=== PATIENT | male | born 1965 | race Caucasian/White ===

== ENCOUNTER 2018-10-11 19:08 | Emergency (ER) | payer BC, MEDICAID ==
[2018-10-11 19:08] VITALS: BMI 41.5
[2018-10-11 19:22] VITALS: RESP 18; TEMP 98.3
[2018-10-11] MEDS ORDERED: Tetanus/Diphtheria Toxoids 0.5 ml Syringe IM ONE ×2 (19:27→19:35)
[2018-10-11] MEDS ORDERED: Lidocaine Hydrochloride 5 ML INJ ONE (19:48)
--- NOTE | 2018-10-11 20:11 | C.PDOC ---
History Of Present Illness 52 year old male presents to the ED for evaluation after sustaining a laceration to his right middle finger with a rusted metal while at work earlier today. Patient removed the foreign body from his finger on site. Patient is unsure when he last received Tetanus immunization. He denies sensory changes or extremity numbness/weakness. Time Seen by Provider: 10/11/18 19:23 Chief Complaint (Nursing): Finger,Hand,&Wrist History Per: Patient History/Exam Limitations: no limitations Onset/Duration Of Symptoms: Hrs Current Symptoms Are (Timing): Still Present Quality: "Pain" Additional History Per: Patient Past Medical History Reviewed: Historical Data, Nursing Documentation, Vital Signs Vital Signs: Last Vital Signs Temp 98.3 F 10/11/18 19:13 Pulse 97 H 10/11/18 19:13 Resp 18 10/11/18 19:13 BP 165/107 H 10/11/18 19:13 Pulse Ox 96 10/11/18 19:13 - Medical History PMH: Asthma, Fractures (LEFT WRIST LEFT HIP RIGHT SHOULDER), HTN, Kidney Stones, Sleep Apnea (C PAP SETTING 5) Surgical History: No Surg Hx - [facility] Procedures CLOSURE SKIN & SUBCUTANEOUS NEC (08/09/13) LAPAROSCOPIC VERTICAL (SLEEVE) GASTRECTOMY (07/06/14) OTHER ENDOSCOPY OF SM INTEST (07/06/14) REMOVAL SUPERFIC FB EYE (06/21/14) Family History: States: Unknown Family Hx - Social History Hx Tobacco Use: No Hx Alcohol Use: No Hx Substance Use: No - Immunization History Hx Tetanus Toxoid Vaccination: No Hx Influenza Vaccination: No Hx Pneumococcal Vaccination: No Review Of Systems Skin: Positive for: Other (laceration to right middle finger ) Neurological: Negative for: Weakness, Numbness Physical Exam - Physical Exam Appears: Non-toxic, No Acute Distress Skin: Normal Color, Warm, Dry, Other (2cm superficial laceration to volar aspect of right 3rd DIP. No foreign body visualized. No tendon injury noted. ) Head: Atraumatic, Normacephalic Extremity: Normal ROM, Capillary Refill (less than 2 seconds ) Neurological/Psych: Normal Speech, Normal Cognition, Normal Sensation ED Course And Treatment O2 Sat by Pulse Oximetry: 96 (on RA) Pulse Ox Interpretation: Normal Progress Note: Right hand XR ordered and reviewed. XR image shows no evidence of foreign body. Tetanus immunization given. 2cm superficial laceration to volar aspect of right 3rd DIP. Digital block performed. Wound irrigated with NS and explored. No FB seen. No tendon injury. Area cleansed thoroughly with saline and small amt betadine. Two 4-0 Nylon sutures placed with bacitracin dressing. Pt tolerated well with minimal bleeding. Patient is resting comfortably and stable for discharge. Patient is advised to follow up with his PMD within 2 days for wound check and suture removal. Laceration - Laceration Repair volar aspect of right 3rd DIP Wound Length (In cm): 2 Description Of Wound: Linear Wound Cleansed With: Betadine, Sterile Saline Wound Examination: Irrigated With Saline, No FB With Wound Exploration, No Tendon Injury With Wound Exploration Wound Closure: Suture (two ) Suture Technique And Material Used: Nylon (4-0) Wound Complexity: Simple Disposition Counseled Patient/Family Regarding: Diagnosis, Need For Followup - Disposition Referrals: Willem Segura [Staff Provider] - Disposition: HOME/ ROUTINE Disposition Time: 20:08 Condition: STABLE Additional Instructions: Follow wound care instructions Follow up with PMD in 2 days wound check Suture removal in 2 days Return to ER if worse Instructions: Laceration Repair With Stitches (DC) Forms: [employer] ([employer]) - Clinical Impression Clinical Impression: Finger laceration - 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 - Scribe Statement The provider has reviewed the documentation as recorded by the Scribe (Cherise Muhammad) All medical record entries made by the Scribe were at my direction and personally dictated by me. I have reviewed the chart and agree that the record accurately reflects my personal performance of the history, physical exam, medical decision making, and the department course for this patient. I have also personally directed, reviewed, and agree with the discharge instructions and disposition.
[2018-10-11] MEDS ORDERED: Bacitracin 500 Units/gm Oint Foilpak UD ONE (20:22)
[2018-10-11 20:27] VITALS: BP 167/112; PULSE 88
[2018-10-11 23:23] VITALS: O2SAT 96
--- NOTE | 2018-10-12 09:13 | RAD ---
PROCEDURE: Right Hand Radiographs. HISTORY: laceration, 3rd finger , foreign body COMPARISON: None. FINDINGS: BONES: No acute fracture or destructive bony lesion identified. Proximal phalanx right ring finger is poorly evaluated due to the retention of metallic ring. JOINTS: No subluxation or dislocation appreciated throughout. SOFT TISSUES: No large retained foreign bodies appreciated throughout the right hand including the right long finger although punctate radiodensity seen in the volar soft tissues at the level of the middle phalanx. OTHER FINDINGS: None. IMPRESSION: No acute fracture or dislocation. No destructive bony lesions right hand. Punctate radiodensities seen in soft tissues of the volar soft tissues right long finger as discussed above. No large retained foreign body evident. Exam of the proximal phalanx right ring finger obscured by metallic ring.
== END 2018-10-11 20:26 | disposition home or self-care (01) ==
LOC: C.ER 19:08
DX: S61.212A Laceration without foreign body of right middle finger without damage to nail, initial encounter (principal); X58.XXXA Exposure to other specified factors, initial encounter; Y99.0 Civilian activity done for income or pay; I10 Essential (primary) hypertension; Z23 Encounter for immunization